=== PATIENT | male | born 1960 | race Two or more races ===

== ENCOUNTER 2017-10-01 18:25 | Emergency (ER) | payer MEDICARE ==
[2017-10-01] MEDS ORDERED: Metoprolol tartrate 1 mg/ml 5mL Amp IV STA (18:32)
[2017-10-01] MEDS ORDERED: Metoprolol tartrate 1 mg/ml 5mL Amp IV ONE (18:34)
[2017-10-01] MEDS ORDERED: Aspirin 81mg Chewable Tab PO STA (18:39)
[2017-10-01] MEDS ORDERED: NITROGLYCERIN OINT 2% 1 INCH PACKET TP STA (18:40)
[2017-10-01] MEDS ORDERED: Aspirin 81mg Chewable Tab ONE (18:43)
[2017-10-01] MEDS ORDERED: NITROGLYCERIN OINT 2% 1 INCH PACKET TP ONE (18:43)
--- NOTE | 2017-10-01 18:47 | ED Physician Chart ---
ED Chief Complaint/HPI - Patient Information Date Seen:: 10/01/17 Time Seen:: 18:20 Chief Complaint:: Chest Pain History of Present Illness:: onset x 4 days of exertional pressure type chest pain, dyspnea, palpitations, and diaphoresis; pt denies trauma, H/As, S/T, neck pain, Abd. pain, cough, A/N/V /D/C, fever, chills, or urinary s/s Allergies:: Allergies Allergy/AdvReac Type Severity Reaction Status Date / Time No Known Allergies Allergy Verified 10/01/17 18:37 Historian:: Patient, Family Member Review:: Nurse's Note Reviewed ED Review of Systems - Review of Systems General/Constitutional: No fever, No chills, No weight loss, No weakness, No diaphoresis, No edema, No loss of appetite Skin: No skin lesions, No rash, No bruising Head: No headache, No light-headedness Eyes: No loss of vision, No pain, No diplopia ENT: No earache, No nasal drainage, No sore throat, No tinnitus Neck: No neck pain, No swelling, No thyromegaly, No stiffness, No mass noted Cardio Vascular: Chest pain, Palpitations, No PND, No orthopnea, No edema Pulmonary: SOB, No cough, No sputum, No wheezing GI: No nausea, No vomiting, No diarrhea, No pain, No melena, No hematochezia, No constipation, No hematemesis G/U: No dysuria, No frequency, No hematuria, No nacturia Musculoskeletal: No bone or joint pain, No back pain, No muscle pain Endocrine: No polyuria, No polydipsia Psychiatric: No prior psych history, No depression, No anxiety, No suicidal ideation, No homicidal ideation, No auditory hallucination, No visual hallucination Hematopoietic: No bruising, No lymphadenopathy Allergic/Immuno: No urticaria, No angioedema Neurological: No syncope, No focal symptoms, No weakness, No paresthesia, No headache, No seizure, No dizziness, No confusion, No vertigo ED Past Medical History - Past Medical History Obtainable: Yes Past Medical History: HTN Family History: HTN Social History: Smoker, No Alcohol, No Drug Use, Surgical History: None Psychiatricy History: None Medication: Reviewed ED Physical Exam - Physical Examination General/Constitutional: Awake, Well-developed, well-nourished, Alert, No distress, GCS 15, Non-toxic appearing, Ambulatory Head: Atraumatic Eyes: Lids, conjuctiva normal, PERRL, EOMI Skin: Nl inspection, No rash, No skin lesions, No ecchymosis, Well hydrated, No lymphadenopathy ENMT: External ears, nose nl, TM canals nl, Nasal exam nl, Lips, teeth, gums nl , Oropharynx nl, Tonsils nl Neck: Nontender, Full ROM w/o pain, No JVD, No nuchal rigidity, No bruit, No mass, No stridor Respiratory: Nl effort/Exclusion, Clear to Auscultation, No Wheeze/Rhonchi/Rales Cardio Vascular: RRR, No murmur, gallop, rubs, NL S1 S2, Carotid/Femoral/Distal pulses equal bilaterally GI: No tenderness/rebounding/guarding, No organomegaly, No hernia, Normal BS's, Nondistended, No mass/bruits, No McBurney tenderness : No CVA tenderness Extremities: No tenderness or effusion, Full ROM, normal strength in all extremities, No edema, Normal digits & nails Neuro/Psych: Alert/oriented, DTR's symmetric, Normal sensory exam, Normal motor strength, Judgement/insight normal, Mood normal, Normal gait, No focal deficits Misc: Normal back, No paraspinal tenderness ED Labs/Radiology/EKG Results - Radiology Results Comments:: CXR: CM; NAD - EKG Interpretations EKG Time:: 18:21 Rate & Rhythm: 143; ST Comments:: + Q-Waves in V2 and V3; + ST-T elevation in V3, V4, V5, and V6 ED Septic Shock - . Is Septic Shock (SBP<90, OR Lactate>4 mmol\L) present?: No ED Reassessment (Disposition) - Reassessment Reassessment Condition:: Improved - Diagnosis Diagnosis:: Dx: Chest Pain; Dyspnea; Diaphoresis; Acute Myocardial Infarction; Unstable Angina; CAD; Uncontrolled Hypertension - Aftercare/Follow up Instructions Aftercare/Follow-Up Instructions:: Counseled pt regarding lab results/diagnosis & need follow up, Counseled pt & family regarding lab results/diagnosis & need follow up - Patient Disposition Discharge/Transfer:: Acute Care (other hosp) Accepting Physician:: Dr. Dimitri Chu Time Called:: [id number] Time Responded:: 18:30 Transport Method:: ACLS Admitted to:: ICU Spoke to:: Dr. Dimitri Chu Admitting Medical Physician:: Dr. Dimitri Chu Condition at Disposition:: Stable, Improved
[2017-10-01 19:18] LABS: HEMOGLOBIN 14.5 gm/dL (12-16); MEAN CORPUSCULAR HGB CONC 34.5 pg (28.0-36.0)
[2017-10-01 19:22] LABS: % EOSINOPHILS 0.9 % (0.0-5.0); % LYMPHOCYTES 12.1 % (20.0-50.0); % MONOCYTES 4.9 % (2.0-10.0); % NEUTROPHILS 82.1 % (40.0-80.0); EOSINOPHILE ABSOLUTE 0.2 Th/cmm (0.1-0.4); LYMPHOCYTE ABSOLUTE 2.2 Th/cmm (1.5-3.0); MEAN CELL VOLUME 90.8 fl (80-99); MEAN CORPUSCULAR HEMOGLOBIN 31.3 pg (26.0-30.0); MEAN PLATELET VOLUME 8.4 fl; MONOCYTE ABSOLUTE 0.9 Th/cmm (0.3-1.0); NEUTROPHILE ABSOLUTE 14.8 Th/cmm (1.8-8.0); PLATELET COUNT 272 Th/cmm (150-400); RED BLOOD COUNT 4.62 Mil/cmm (4.30-5.70); RED CELL DISTRIBUTION WIDTH 13.2 % (11.5-20.0)
[2017-10-01 19:26] LABS: INR 0.94 (0.5-1.4); PROTHROMBIN TIME (TEST) 9.8 SECONDS (9.5-11.5)
[2017-10-01 19:32] LABS: ALB/GLOB RATIO 1.2 (1.0-1.8); ALKALINE PHOSPHATASE 68 U/L (34-104); ANION GAP 14.5 (7.0-16.0); BILIRUBIN,TOTAL 0.6 mg/dL (0.3-1.0); BUN - UREA NITROGEN 12 mg/dL (7-25); CALCIUM SERUM 8.8 mg/dL (8.6-10.3); CARBON DIOXIDE 20.6 mEq/L (21.0-31.0); CHLORIDE 103 mEq/L (98-107); CHOLESTEROL 179 mg/dL (<200); CREATININE - SERUM 1.3 mg/dL (0.7-1.3); CREATININE KINASE 163 U/L (30-223); GFR AFRICAN-AMERICAN > 60.0 ml/min (>90); GFR NON AFRICAN-AMERICAN > 60.0 ml/min; GLUCOSE 166 mg/dL (70-105); HDL -HIGH DENSITY LIPOPROTEIN 36 mg/dL (23-92); POTASSIUM SERUM 3.1 mEq/L (3.5-5.1); SGOT 20 U/L (13-39); SGPT/ALT 27 U/L (7-52); TOTAL PROTEIN,SERUM 7.4 gm/dL (6.0-8.3); TRIGLYCERIDES 120 mg/dL (<150)
[2017-10-01 20:00] LABS: DDIMER QUANT 2170 ng/mL (100-400)
[2017-10-01 20:36] LABS: SODIUM SERUM 135 mEq/L (136-145)
[2017-10-01 20:37] LABS: WHITE BLOOD COUNT 18.1 Th/cmm (4.8-10.8)
--- NOTE | 2017-10-02 07:56 | Diagnostic Imaging Report ---
CHEST X-RAY: AP view INDICATION: pain COMPARISON: None FINDINGS: Findings of CHF are seen with bilateral interstitial infiltrates. No effusions. Cardiomegaly is noted. Atherosclerosis is noted. IMPRESSION: CHF with bilateral interstitial infiltrates. Clinical correlation and follow-up is recommended. Cardiomegaly.
== END 2017-10-01 19:45 | disposition short-term general hospital (02) ==
LOC: ER 18:25
DX: I21.9 Acute myocardial infarction, unspecified (principal); I20.0 Unstable angina; I10 Essential (primary) hypertension; I25.10 Atherosclerotic heart disease of native coronary artery without angina pectoris; R61 Generalized hyperhidrosis; F17.200 Nicotine dependence, unspecified, uncomplicated
CPT/HCPCS: 36415-UA; 71045-TC; 80053-TC; 80061-TC; 82550-TC; 83880-TC; 84484-TC; 85025-TC; 85379-TC; 85610-TC; 90799; 93005; 94760; 96374; Z7610